=== PATIENT | male | born 1990 | race Caucasian/White ===

== ENCOUNTER 2020-04-06 13:24 | Emergency (ER) | payer MEDICAID ==
[~2020-04-06] VITALS: Ht 167.6 cm; Wt 68.0 kg
[2020-04-06 13:31] VITALS: BP_SYST 118
[2020-04-06 13:40] VITALS: BP_SYST 118
== END 2020-04-06 13:40 | disposition home or self-care (01) ==
LOC: SED 13:24
DX: S80.01XA Contusion of right knee, initial encounter (principal); S60.221A Contusion of right hand, initial encounter; W18.39XA Other fall on same level, initial encounter; Y93.89 Activity, other specified; Y92.89 Other specified places as the place of occurrence of the external cause; Y99.8 Other external cause status
CPT/HCPCS: 73564; 99284